=== PATIENT | male | born 1980 | race Native Hawaiian/Other Pacific Islander ===

== ENCOUNTER 2020-05-29 17:14 | Emergency (ER) | payer OTHER ==
[~2020-05-29] VITALS: Ht 167.6 cm; Wt 99.8 kg
[2020-05-29 18:00] VITALS: TEMP 98.6
[2020-05-29 18:38] LABS: PLATELET COUNT 207 K/uL (142-355)
[2020-05-29 18:47] LABS: POTASSIUM 3.7 mmol/L (3.6-5.2)
[2020-05-30 01:12] VITALS: BP 115/72
== END 2020-05-30 01:40 | disposition home or self-care (01) ==
LOC: ED 17:14
PROVIDERS: Family Medicine
DX: F22 Delusional disorders (principal); F41.8 Other specified anxiety disorders; F15.90 Other stimulant use, unspecified, uncomplicated; Z03.818 Encounter for observation for suspected exposure to other biological agents ruled out
CPT/HCPCS: 36415; 80053; 80307; 80320; 80329; 81000; 85027; 87635; 99285; U0003